=== PATIENT | male | born 1960 | race Caucasian/White ===

== ENCOUNTER 2021-01-08 16:26 | Observation (INO) ==
[2021-01-08] MEDS ORDERED: Isovue-370 500 ML BOTTLE IVP ONE (17:22)
[2021-01-08] MEDS ORDERED: Morphine Sulfate 2 MG/ML SYRINGE IVP ONE ×2 (17:23→20:43)
[2021-01-08] MEDS ORDERED: Clindamycin 600 MG/50 ML 600 MG/50 ML IV.SOLN IVPB ONE (17:42)
[2021-01-08] MEDS ORDERED: 0.9 % Sodium Chloride 1,000 ML IVC ONE ×2 (17:43→19:04)
[2021-01-08 18:07] LABS: Basophils % 0.4 %; Eosinophils # 0.3 K/mcL (0.0-0.6); Eosinophils % 2.6 %; Hematocrit 33.3 % (37.5-50.1); Hemoglobin 10.5 g/dL (12.9-16.9); Immature Granulocytes % 0.5 % (0-4); Lymphocytes # 1.1 K/mcL (0.6-4.6); Lymphocytes % 9.7 %; Mean Corpuscular HGB Conc 31.5 g/dL (31.6-35.5); Mean Corpuscular Hemoglobin 30.4 pg (28.0-33.3); Mean Corpuscular Volume 96.5 fL (83.0-100.0); Mean Platelet Volume 9.6 fL (9.4-12.4); Monocytes # 1.3 K/mcL (0.0-1.3); Monocytes % 11.7 %; Neutrophils # 8.3 K/mcL (1.6-8.9); Platelet Count 262 K/mcL (140-400); Red Blood Count 3.45 M/mcL (4.19-5.50); Red Cell Distribution Width 13.9 % (11.5-14.5); Segmented Neutrophils % 75.1 %
[2021-01-08 18:11] LABS: BUN/Creatinine Ratio 21 (6-26); Blood Urea Nitrogen 28 mg/dL (8-23); Calcium 8.5 mg/dL (8.6-10.3); Carbon Dioxide 24 mEq/L (23-29); Chloride 97 mEq/L (98-107); Glucose 286 mg/dL (70-105); Osmolality,Calculated 284 (280-300); Potassium 4.7 mEq/L (3.5-5.1); Sodium 129 mEq/L (136-145); eGFR For African Americans > 60 (> 60); eGFR For Non-African Americans 56 (> 60)
[2021-01-08] MEDS ORDERED: Piperacillin/Tazobactam 3.375 GM in Water for inj. (sterile) 20 ML IVP ONE (19:38)
[2021-01-08] MEDS ORDERED: Ondansetron 4 MG/2 ML VIAL IVP PRN (20:45)
[2021-01-08] MEDS ORDERED: Naloxone 0.4 MG/ML INJ IVP PRN (20:45)
[2021-01-08] MEDS ORDERED: *HR* OxyCODONE Immed Rel 5 MG TABLET PO PRN (20:49)
[2021-01-08] MEDS ORDERED: *HR* Dextrose 50 % in Water (Vial) 50 ML VIAL IVP PRN (20:49)
[2021-01-08] MEDS ORDERED: Dextrose Gel 15 GM/37.5 ML TUBE PO PRN ×2 (20:49)
[2021-01-08] MEDS ORDERED: D5% in Water 1,000 ML IVC PRN (20:49)
[2021-01-08] MEDS ORDERED: Insulin LISPRO 300 UNITS/3 ML VIAL SUBQ SCH (21:00)
[2021-01-08] MEDS ORDERED: Ipratropium/Albuterol Neb 3 ML IH PRN (21:32)
[2021-01-08] MEDS: *HR* Heparin 5,000 UNIT/ML VIAL SQ SCH (22:27)
[2021-01-08] MEDS: 0.9 % Sodium Chloride 1,000 ML IVC SCH (22:47)
[2021-01-09 02:40] LABS: Basophils % 0.4 %; Eosinophils # 0.4 K/mcL (0.0-0.6); Eosinophils % 3.4 %; Hematocrit 31.5 % (37.5-50.1); Hemoglobin 9.9 g/dL (12.9-16.9); Immature Granulocytes % 0.4 % (0-4); Lymphocytes # 1.7 K/mcL (0.6-4.6); Lymphocytes % 16.3 %; Mean Corpuscular HGB Conc 31.4 g/dL (31.6-35.5); Mean Corpuscular Hemoglobin 30.8 pg (28.0-33.3); Mean Corpuscular Volume 98.1 fL (83.0-100.0); Mean Platelet Volume 9.7 fL (9.4-12.4); Monocytes # 1.3 K/mcL (0.0-1.3); Neutrophils # 7.1 K/mcL (1.6-8.9); Platelet Count 239 K/mcL (140-400); Red Blood Count 3.21 M/mcL (4.19-5.50); Red Cell Distribution Width 13.9 % (11.5-14.5); Segmented Neutrophils % 67.5 %; White Blood Count 10.5 K/mcL (4.3-11.1)
[2021-01-09 02:58] LABS: BUN/Creatinine Ratio 20 (6-26); Blood Urea Nitrogen 22 mg/dL (8-23); Calcium 7.9 mg/dL (8.6-10.3); Carbon Dioxide 24 mEq/L (23-29); Chloride 100 mEq/L (98-107); Glucose 224 mg/dL (70-105); Osmolality,Calculated 282 (280-300); Potassium 4.4 mEq/L (3.5-5.1); Sodium 131 mEq/L (136-145); eGFR For African Americans > 60 (> 60); eGFR For Non-African Americans > 60 (> 60)
[2021-01-09 03:13] LABS: Adenovirus Not Detected (Not Detect); Bordetella Pertussis Not Detected (Not Detect); Chlamydophila pneumoniae Not Detected (Not Detect); Coronavirus 229E Not Detected (Not Detect); Coronavirus HKU1 Not Detected (Not Detect); Coronavirus NL63 Not Detected (Not Detect); Coronavirus OC43 Not Detected (Not Detect); Human Metapneumovirus Not Detected (Not Detect); Human Rhinovirus/Enterovirus Not Detected (Not Detect); Influenza A Subtype 2009 H1 Not Detected (Not Detect); Influenza B Not Detected (Not Detect); Mycoplasma pneumoniae Not Detected (Not Detect); Parainfluenza Virus 1 Not Detected (Not Detect); Parainfluenza Virus 2 Not Detected (Not Detect); Parainfluenza Virus 3 Not Detected (Not Detect); Parainfluenza Virus 4 Not Detected (Not Detect); Respiratory Syncytial Virus Not Detected (Not Detect); SARS-CoV-2 Not Detected (Not Detect)
[2021-01-09] MEDS: Clindamycin 300 MG/50 ML 300 MG/50 ML IV.SOLN IVPB SCH ×3 (03:36→18:17)
[2021-01-09] MEDS ORDERED: Piperacillin/Tazobactam 3.375 GM in 0.9 % Sodium Chloride Mini Bag 100 ML IVPB SCH (04:00)
[2021-01-09] MEDS: *HR* Heparin 5,000 UNIT/ML VIAL SQ SCH ×3 (06:08→21:11)
[2021-01-09] MEDS ORDERED: Lidocaine HCL 4 ML Topical Solution (Laryng-O-Jet Kit Sterile Pak) TP ONE (07:04)
[2021-01-09] MEDS ORDERED: *HR* Propofol 200 MG/20 ML VIAL IVP ONE (07:04)
[2021-01-09] MEDS ORDERED: *HR* Midazolam HCl 2 MG/2 ML VIAL ONE (07:04)
[2021-01-09] MEDS ORDERED: *HR* FentaNYL (PF) 100 MCG/2 ML VIAL ONE (07:04)
[2021-01-09] MEDS ORDERED: *HR* Succinylcholine 200 MG/10 ML VIAL IVP ONE (07:07)
[2021-01-09] MEDS ORDERED: Ondansetron 4 MG/2 ML VIAL ONE (07:07)
[2021-01-09] MEDS ORDERED: Lidocaine -MPF 2% 2 ML VIAL ONE (07:07)
[2021-01-09] MEDS ORDERED: *HR* OxyCODONE Immed Rel 5 MG TABLET PO PRN ×2 (07:24→10:25)
[2021-01-09] MEDS ORDERED: Ondansetron 4 MG/2 ML VIAL IVP PRN ×2 (07:24→10:25)
[2021-01-09] MEDS ORDERED: *HR* HYDROmorphone PF 0.5 MG/0.5 ML SYRINGE IVP PRN (07:24)
[2021-01-09] MEDS ORDERED: Insulin LISPRO 300 UNITS/3 ML VIAL SUBQ SCH ×2 (07:30→21:00)
[2021-01-09] MEDS ORDERED: Famotidine 20 MG/2 ML VIAL ONE (07:56)
[2021-01-09] MEDS ORDERED: Acetaminophen IV 1,000 MG/100 ML BAG IVPB ONE (07:56)
[2021-01-09] MEDS ORDERED: *HR* Dextrose 50 % in Water (Vial) 50 ML VIAL IVP PRN (10:25)
[2021-01-09] MEDS ORDERED: Ipratropium/Albuterol Neb 3 ML IH PRN (10:25)
[2021-01-09] MEDS ORDERED: D5% in Water 1,000 ML IVC PRN (10:25)
[2021-01-09] MEDS ORDERED: Dextrose Gel 15 GM/37.5 ML TUBE PO PRN ×2 (10:25)
[2021-01-09] MEDS ORDERED: 0.9 % Sodium Chloride 1,000 ML IVC SCH (10:25)
[2021-01-09] MEDS ORDERED: Naloxone 0.4 MG/ML INJ IVP PRN (10:25)
[2021-01-09] MEDS: 0.9 % Sodium Chloride 1,000 ML IVC SCH (10:57)
[2021-01-09] MEDS: Piperacillin/Tazobactam 3.375 GM in 0.9 % Sodium Chloride Mini Bag 100 ML IVPB SCH ×2 (13:37→21:11)
[2021-01-09] MEDS: Insulin LISPRO 300 UNITS/3 ML VIAL SUBQ SCH ×2 (13:45→16:12)
[2021-01-10] MEDS: Clindamycin 300 MG/50 ML 300 MG/50 ML IV.SOLN IVPB SCH (01:47)
[2021-01-10] MEDS: Piperacillin/Tazobactam 3.375 GM in 0.9 % Sodium Chloride Mini Bag 100 ML IVPB SCH (05:40)
[2021-01-10] MEDS: *HR* Heparin 5,000 UNIT/ML VIAL SQ SCH (05:41)
[2021-01-10 06:11] VITALS: BP 138/65
[2021-01-10] MEDS: Insulin LISPRO 300 UNITS/3 ML VIAL SUBQ SCH (08:27)
== END 2021-01-10 12:03 | disposition home or self-care (01) ==
LOC: EMEROOARM 16:26 → 3ANU 16:26
PROVIDERS: ADMIT Family Medicine; ATTEND Family Medicine